=== PATIENT | male | born 1970 | race Caucasian/White ===

== ENCOUNTER 2017-01-12 14:48 | Emergency (ER) | payer SELFPAY ==
[2017-01-12 15:04] VITALS: BP 166/83; BMI 21.9
[2017-01-12] MEDS ORDERED: NS 1000 ML 1,000 ML ONE (15:20)
[2017-01-12] MEDS ORDERED: PEPCID 20 MG IV PREMIX* 20 MG/50 ML BAG IV ONE ×2 (15:20→15:23)
[2017-01-12] MEDS ORDERED: ASPIRIN 81 MG CHEWTAB ONE (15:21)
--- NOTE | 2017-01-12 15:23 | DR.CP ---
HPI - Time Seen Time seen: 15:20 - PCP Primary Care Physician: NONE - HPI Comment HPI Comment: PATIENT HAVE SUNSTERNAL CHEST PAIN ASSOCIATED WITH SOB. STARTED WHILE WORKING IN THE HIT. DENIES FEVER OR TRAUMA. HE FEEL WEAK AND SLIGHTLY NAUSEATED. - Complaint Chief Complaint Doctor Comments: CHEST PAIN, SOB FOR FEW HOURS. Chief Complaint:: AFTER LUNCH FELT WEIRD AND SLUGGISH. HAD CHEST PAIN WITH SHORTNESS OF BREATH. WAS UNLOADING LOGS IN HEAT - Reviewed Nurses Notes Review: Yes - Source History Provided: Patient - Mode of Arrival Mode of Arrival: Ambulatory - Timing Onset of Chief Complaint: 01/12/17 Came on: Suddenly Pain: Present Now - Duration Duration: Constant Duration: Hours - Location Chest Pain Radiation Location: None - Context Onset: With light exertion Cardiac Risk Factors: None PE Risk Factors: None History of: None Prehospital Care: None - Quality Quality: Sharp - Severity Severity: None - Modifying Factors Worsens: Nothing Impoves: Nothing - Associated Signs and Symptoms Associated Signs and Symptoms: Shortness of Breath PMH - PMH Past Medical History: No Past Surgical History: No Surgical History: Abdominal Surgery, Ortho Surgery Past Surgical History Comment: ELBOW, HERNIA - Family History History of Family Medical Conditions: Yes Family Medical History: Diabetes Mellitus, Cancer, Coronary Artery Disease, Hypertension - Social History Alcohol Use: Occasionally Do you use any recreational Drugs:: No Lives With: Mom Lives Where: [facility]isted Care - infectious screening In the last 2 months have you had wt loss of >10#?: YES Have you had fever, night sweats or hemotysis?: No Have you traveled outside the country in the last 6 months?: No Isolation: Standard ROS - Review of Systems Constitutional: No Symptoms Reported Eyes: No Symptoms Reported ENTM: No Symptoms Reported Respiratoy: Short of Breath Cardiovascular: Chest Pain Gastrointestinal/Abdominal: Nausea Genitourinary: No Symptoms Reported Neurological: No Symptoms Reported Musculoskeletal: No Symptoms Reported Integumentary: No Symptoms Reported Hematologic/Lymphatic: No Symptoms Reported Endocrine: No Symptoms Reported All Other Systems: Reviewed and Negative PE - Vitals Vitals: Temperature 97.9 F Pulse Rate 89 Respiratory Rate 18 Blood Pressure 166/83 O2 Sat by Pulse Oximetry 99 - General Limitations: No Limitations General Appearance: Alert - Head Head Exam: Normal Inspection - Eyes Eye exam: Normal Appearance - ENT ENT Exam: Normal External Ear Exam - Chest Chest Inspection: Symmetric Chest Wall Rise - Respiratory Respiratory Exam: Normal Lung Sounds Bilat Respiratory Exam: Bilateral Clear to Auscultation - Cardiovascular Cardiovascular Exam: Regular Rate, Normal Rhythm, Normal Heart Sounds Pulse: Normal, Radial, Femoral Edema: Normal - Abdominal Exam Abdominal Exam: Normal Bowel Sounds, Soft. negative: Tenderness - Extremities Extremities Exam: Normal Inspection - Back Back Exam: Normal Inspection - Neurologic Neurological Exam: Alert, Oriented X3 - Psychiatric Psychiatric Exam: Normal Affect, Normal Mood - Skin Skin Exam: Normal Color MDM - Differential Diagnosis Differential Diagnosis: Angina, Chest Wall Pain, Cholelithasis, Esophageal Reflux/Spasm, Gastritis, Myocardial Infarction, Pericarditis, Pleuritis, Pancreatitis, Pneumonia, Pneumothorax, Pulmonary Embolus Course - Treatment Treatment: SEE ORDERS. - Education/Counseling Education/Counseling: Patient Educated On: Treatment, Diagnosis, Needs for Follow Up ROR - Labs Reviewed Laboratory Results Reviewed?: Yes Result Diagrams: 01/12/17 15:25 01/12/17 15:25 Laboratory: WBC 9.4 X10^3/uL (3.6-10.0) 01/12/17 15:25 RBC 4.70 X10^6/uL (4.7-6.0) 01/12/17 15:25 Hgb 14.5 g/dL (13.5-18.0) 01/12/17 15:25 Hct 41.1 % (42.0-54.0) L 01/12/17 15:25 MCV 87.6 fL (80.0-100.0) 01/12/17 15:25 MCH 30.9 pg (27.0-34.0) 01/12/17 15:25 MCHC 35.3 g/dL (33.0-35.0) H 01/12/17 15:25 RDW 12.6 % (11.6-16.5) 01/12/17 15:25 Plt Count 240 X10^3/uL (150.0-450.0) 01/12/17 15:25 MPV 8.9 fL (7.4-11.0) 01/12/17 15:25 Neut % 73.3 % (42.0-75.0) 01/12/17 15:25 Lymph % 17.4 % (21.0-51.0) L 01/12/17 15:25 [place] % 7.6 % (0.0-13.0) 01/12/17 15:25 Eos % 0.9 % (0.9-2.9) 01/12/17 15:25 Baso % 0.8 % (0.2-1.0) 01/12/17 15:25 Neut # 6.9 x10^3/uL (2.2-4.8) H 01/12/17 15:25 Lymph # 1.6 X10^3/uL (1.3-2.9) 01/12/17 15:25 [place] # 0.7 x10^3/uL (0.3-0.8) 01/12/17 15:25 Eos # 0.1 x10^3/uL (0.0-0.2) 01/12/17 15:25 Baso # 0.1 X10^3/uL (0.0-0.1) 01/12/17 15:25 Absolute Nucleated RBC 0.1 /100WBC 01/12/17 15:25 Sodium 142 mmol/L (136-145) 01/12/17 15:25 Corrected Sodium TNP 01/12/17 15:25 Potassium 3.7 mmol/L (3.5-5.1) 01/12/17 15:25 Chloride 104 mmol/L (98-107) 01/12/17 15:25 Carbon Dioxide 28.4 mmol/L (21-32) 01/12/17 15:25 BUN 19 mg/dL (7-18) H 01/12/17 15:25 Creatinine 1.18 mg/dL (0.70-1.30) 01/12/17 15:25 Est GFR (MDRD) Af Amer > 60 (>60) 01/12/17 15:25 Est GFR (MDRD) Non-Af > 60 (>60) 01/12/17 15:25 Glucose 75 mg/dL (65-99) 01/12/17 15:25 Calcium 9.0 mg/dL (8.5-10.1) 01/12/17 15:25 Corrected Calcium TNP 01/12/17 15:25 Total Bilirubin 0.40 mg/dL (0.2-1.0) 01/12/17 15:25 AST 18 Units/L (15-37) 01/12/17 15:25 ALT 25 Units/L (12-78) 01/12/17 15:25 Alkaline Phosphatase 69 Units/L (46-116) 01/12/17 15:25 Creatine Kinase 322 Units/L (39-308) H 01/12/17 15:25 CK-MB (CK-2) 1.6 ng/mL (0-4.0) 01/12/17 15:25 CK/CKMB % Calc 0.5 % (<4) 01/12/17 15:25 Troponin I < 0.02 ng/mL (0-1.5) 01/12/17 15:25 Total Protein 7.7 g/dL (6.4-8.2) 01/12/17 15:25 Albumin 4.0 g/dL (3.4-5.0) 01/12/17 15:25 Globulin 3.7 g/dL (2.5-4.5) 01/12/17 15:25 Albumin/Globulin Ratio 1.1 Ratio (1.1-2.1) 01/12/17 15:25 H. pylori IgG Antibody Positive (NEGATIVE) A 01/12/17 15:25 - XRAY XRAY Findings: REPORT DISCUSS WITH PATIENT. - EKG Rhythm: NSR (EKG NOTED) - Diagnosis Discharge Problem: Helicobacter pylori ab+, Helicobacter positive gastritis Chest pain Qualifiers: Chest pain type: unspecified Qualified Code(s): R07.9 - Chest pain, unspecified - Discharge Plan Disposition: HOME, SELF-CARE Condition: Stable Prescriptions: Gi Cocktail [LEVSIN/Maalox/Lidoc Visc (GI COCKTAIL) *] 30 ml PO QID #240 ml Lansoprazole/Amoxiciln/Clarith [PrevPac 14-day pack] 1 dose PO BID #1 pkg - Follow ups/Referrals Follow ups/Referrals: [facility],None [Primary Care Provider] - 1 day Damian Longoria [STAFF PHYSICIAN] - 1 day - Instructions Instructions: Gastritis, Adult, [id number], Helicobacter Pylori Antibodies Test, Chest Pain Observation
[2017-01-12] MEDS ORDERED: NS 1000 ML 1,000 ML IV ONE (15:30)
[2017-01-12 15:43] LABS: BASOPHILS # (AUTO) 0.1 X10^3/uL (0.0-0.1); BASOPHILS % (AUTO) 0.8 % (0.2-1.0); EOSINOPHILS # (AUTO) 0.1 x10^3/uL (0.0-0.2); EOSINOPHILS % (AUTO) 0.9 % (0.9-2.9); HEMATOCRIT 41.1 % (42.0-54.0); HEMOGLOBIN 14.5 g/dL (13.5-18.0); LYMPHOCYTES # (AUTO) 1.6 X10^3/uL (1.3-2.9); LYMPHOCYTES % (AUTO) 17.4 % (21.0-51.0); MEAN CORPUSCULAR HEMOGLOBIN 30.9 pg (27.0-34.0); MEAN CORPUSCULAR HGB CONC 35.3 g/dL (33.0-35.0); MEAN CORPUSCULAR VOLUME 87.6 fL (80.0-100.0); MEAN PLATELET VOLUME 8.9 fL (7.4-11.0); MONOCYTES # (AUTO) 0.7 x10^3/uL (0.3-0.8); MONOCYTES % (AUTO) 7.6 % (0.0-13.0); NEUTROPHILS # (AUTO) 6.9 x10^3/uL (2.2-4.8); NEUTROPHILS % (AUTO) 73.3 % (42.0-75.0); PLATELET COUNT 240 X10^3/uL (150.0-450.0); RED CELL DISTRIBUTION WIDTH 12.6 % (11.6-16.5); WHITE BLOOD COUNT 9.4 X10^3/uL (3.6-10.0)
[2017-01-12 15:54] LABS: BLOOD UREA NITROGEN 19 mg/dL (7-18); CARBON DIOXIDE 28.4 mmol/L (21-32); CHLORIDE 104 mmol/L (98-107); CREATININE 1.18 mg/dL (0.70-1.30); GLUCOSE 75 mg/dL (65-99); SODIUM 142 mmol/L (136-145); TROPONIN I < 0.02 ng/mL (0-1.5); eGFR BLACK RACES > 60 (>60); eGFR NON BLACK RACES > 60 (>60)
[2017-01-12 15:59] LABS: ALANINE AMINOTRANSFERASE 25 Units/L (12-78); ALKALINE PHOSPHATASE 69 Units/L (46-116); ASPARTATE AMINO TRANSFERASE 18 Units/L (15-37); CREATINE KINASE 322 Units/L (39-308); TOTAL PROTEIN 7.7 g/dL (6.4-8.2)
[2017-01-12] MEDS ORDERED: ASPIRIN 81 MG CHEWTAB PO SCH (16:00)
--- NOTE | 2017-01-12 16:15 | RAD ---
HISTORY: Chest pain Study: Chest one view Comparison: None Findings: The trachea is midline. The cardiac silhouette is unremarkable. The lungs are clear without focal infiltrate or effusion. The bony thorax is unremarkable. IMPRESSION: 1. No acute cardiopulmonary disease. Reported By:
[2017-01-12 16:19] LABS: CKMB % 0.5 % (<4); CREATINE KINASE MB 1.6 ng/mL (0-4.0)
[2017-01-12] MEDS ORDERED: PROTONIX INJ 40 MG VIAL IVP ONE (17:18)
[2017-01-12] MEDS ORDERED: LEVSIN/MAALOX/LIDOC VISC PO ONE (17:21)
[2017-01-12] MEDS ORDERED: PROTONIX INJ 40 MG VIAL ONE (17:28)
[2017-01-12] MEDS ORDERED: LEVSIN/MAALOX/LIDOC VISC ONE (17:28)
== END 2017-01-12 17:49 | disposition home or self-care (01) ==
LOC: ER 15:15
DX: R07.89 Other chest pain (principal); B96.81 Helicobacter pylori [H. pylori] as the cause of diseases classified elsewhere
CPT/HCPCS: 36415; 71010; 80053; 82550; 82553; 84484; 85025; 86677; 93005; 96365; 96374; 96375; 99283; A4222; C9113; S0028